=== PATIENT | male | born 1930 | race Caucasian/White ===

== ENCOUNTER → 2017-08-02 | Outpatient (CLI) | payer OTHER ==
[~2017-08-02] MED LIST: ASPIR 8181 MG PO; CARVEDILOL6.25 MG PO; COLACE100 MG PO; LIPITOR 20 MG T20 M1 PO; METAMUCIL1 EAC1 PO; NITROGLYCERIN0.4 MG SL; NOHOMEMEDICATIONS; PLAVIX 75 MG TA75 M1 PO
== END ==
LOC: RAD 05:48
DX: R06.00 Dyspnea, unspecified (principal)

== ENCOUNTER → 2017-08-19 | Outpatient (CLI) | payer OTHER | LOC: SLEEPLAB 17:28 | DX: G47.33 Obstructive sleep apnea (adult) (pediatric) (principal) ==